=== PATIENT | male | born 1995 | race Caucasian/White ===

== ENCOUNTER 2019-12-24 22:43 | Emergency (ER) | payer MEDICAID, OTHER ==
[~2019-12-24] VITALS: Ht 185.4 cm; Wt 78.0 kg
[2019-12-25] MEDS ORDERED: ACYCLOVIR 400 MG TABLET PO ONE (00:45)
[2019-12-25] MEDS ORDERED: PREDNISONE 20MG TABLET PO ONE (00:45)
[2019-12-25 01:46] VITALS: BP 116/65
== END 2019-12-25 02:30 | disposition home or self-care (01) ==
LOC: ER 22:43
DX: G51.0 Bell's palsy (principal); J45.909 Unspecified asthma, uncomplicated
CPT/HCPCS: 70450; 93005; 99284; J7512